=== PATIENT | male | born 1945 | race Caucasian/White ===

== ENCOUNTER → 2024-05-30 08:51 | Outpatient (REF) | payer MEDICARE, OTHER, SELFPAY ==
[2024-05-30 09:47] LABS: % Basophils 1.1 % (0-2); % Eosinophils 1.4 % (0-6); % Immature Granulocytes 0.4 % (0-0.5); % Lymphocytes 21.5 % (20.5-51.1); % Neutrophils 65.6 % (42.2-75.2); Absolute Basophils 0.1 10^3/uL (0-0.2); Absolute Eosinophils 0.1 10^3/uL (0-0.7); Absolute Lymphocytes 1.5 10^3/uL (1.2-3.4); Absolute Monocytes 0.7 10^3/uL (0.1-0.6); Absolute Neutrophils 4.7 10^3/uL (1.4-6.5); Hematocrit 46.6 % (39.0-52.0); Hemoglobin 15.1 g/dL (13.0-18.0); Mean Corp Hgb Conc. 32.4 g/dL (33.0-37.0); Mean Corpuscular Hgb 29.3 pg (27.0-31.0); Mean Corpuscular Volume 90.3 fL (80.0-94.0); Mean Platelet Volume 8.9 fL (7.4-10.4); Nucleated Red Blood Cells % 0 % (-); Platelet Count 225 10^3/uL (130-400); Red Blood Cell Count 5.16 10^6/uL (4.70-6.10); Red Cell Dist. Width 13.9 % (11.5-14.5); White Blood Cell Count 7.1 10^3/uL (4.8-10.8)
[2024-05-30 10:04] LABS: ALT (SGPT) 19 U/L (0-50); AST (SGOT) 31 U/L (17-59); Albumin 4.4 g/dl (3.5-5.0); Alkaline Phosphatase 76 U/L (38-126); Blood Urea Nitrogen 19 mg/dl (9-20); Calcium 9.5 mg/dl (8.4-10.2); Carbon Dioxide 28 mmol/L (22-30); Chloride 106 mmol/L (98-107); Glucose 98 mg/dl (70-99); Potassium 4.3 mmol/L (3.5-5.1); Sodium 140 mmol/L (135-145); Total Bilirubin 1.5 mg/dl (0.2-1.3); Total Protein 6.7 g/dl (6.3-8.2); eGFR > 60.00
== END ==
LOC: HWLAB 08:51
PROVIDERS: ATTENDING PHYSICIAN Psychiatry & Neurology Vascular Neurology; FAMILY PHYSICIAN Family Medicine
DX: G70.00 Myasthenia gravis without (acute) exacerbation (principal); G30.9 Alzheimer's disease, unspecified
CPT/HCPCS: 36415; 80053; 85025

== ENCOUNTER 2024-08-03 20:14 | Emergency (ER) | payer MEDICARE, OTHER, SELFPAY ==
[2024-08-03 20:15] VITALS: BP 138/82
--- NOTE | 2024-08-03 20:52 | ED.GENMED ---
History of Present Illness
General
Chief Complaint: Rectal Bleeding
Source: patient
Exam Limitations: none
Time Seen by Provider: 08/03/24 20:40
History of Present Illness
History of Present Illness:
See MDM
Past History
Past History
ED Past Medical History: HTN and Hypercholesterolemia; Negative Asthma, CAD, Cancer, CHF, COPD, IDDM or NIDDM
ED Past Surgical History: Negative Cardiac
Social History
Tobacco: Non-smoker
Alcohol: Occasional
Drug: None
Personal:
Living: with family
Employment: Retired
Family History
Family History: Other (Noncontributory)
Phy Exam
Physical Exam
Physical Exam:
See MDM
Course
Orders/Labs/Results
Orders:
Orders
08/03/24 20:20
EKG [Electrocardiogram (*1)] Stat
Reason for Study: Other
Other Reason for Exam: bleeding
EKG- Treatment ONCE
08/03/24 21:03
Complete Blood Count/With Diff Urgent
Comprehensive Metabolic Panel Urgent
Abnormal Lab Results
08/03/24
21:03
WBC 12.9 H 10^3/uL
(4.8-10.8)
Abs Immat Gran (auto) 0.1 H 10^3/uL
(0-0.05)
Absolute Neuts (auto) 10.4 H 10^3/uL
(1.4-6.5)
Absolute Monos (auto) 1.0 H 10^3/uL
(0.1-0.6)
Neutrophils % 80.8 H %
(42.2-75.2)
Lymphocytes % 9.1 L %
(20.5-51.1)
BUN 24 H mg/dl
(9-20)
Glucose 150 H mg/dl
(70-99)
Total Bilirubin 1.4 H mg/dl
(0.2-1.3)
08/03/24 21:03
08/03/24 21:03
Vital Signs
Initial and Last Documented VS:
Initial Vital Signs
Temp Pulse Resp BP Pulse Ox
98.2 F 80 16 138/82 94
08/03/24 20:15 08/03/24 20:15 08/03/24 20:15 08/03/24 20:15 08/03/24 20:15
Last Documented Vital Signs
Temp Pulse Resp BP Pulse Ox
98.2 F 80 16 138/82 94
08/03/24 20:15 08/03/24 20:15 08/03/24 20:15 08/03/24 20:15 08/03/24 20:49
MDM/Problems Addressed
Differential Diagnosis Includes:
HPI and MDM Narrative:
79-year-old male presenting with episode of rectal bleeding. Patient recently told his that he has been constipated for 10 days. They sought help and started on MiraLAX. Patient has been having bowel movements ever since. She was concerned
because his brief had bright red blood in it after his bowel movement. Patient denies abdominal pain. She is concerned it could be related to his history of diverticulosis. He is not on blood thinners
On exam, he is well-appearing nontoxic. Is a soft and nontender abdomen. Rectal exam was performed showing evidence of a recently bleeding external hemorrhoid. There is no thrombosis noted. Rectal exam was performed showing brown stool that was
guaiac negative
Physical exam
General: Well appearing and non-toxic
HEENT: protecting airway
Neck: appears supple
CV: No evidence of cyanosis
Resp: No accessory muscle use
Abd: Non-distended. Soft and nontender
Rectal: External hemorrhoid noted with recent bleeding. No thrombosis. Stool is brown and guaiac not
Extremities: No deformities
Neuro: alert
Psych: Normal affect
Skin: Intact
Problems Addressed including Acute and Chronic Conditions affecting care:
1. External hemorrhoid
Acuity: acute
Prognosis: stable
Details: Appears to be the source of his bleeding. Stool is brown and guaiac negative. Will obtain basic blood work but otherwise discussed stool softeners and steroidal rectal cream
Updates
Hemoglobin stable. Patient and feel comfortable going home
Differential Diagnosis (but not limited to): Diverticulosis, external hemorrhoid, internal hemorrhoid
Testing considered: CT abdomen/pelvis but he has a nontender abdominal exam
Drug therapy (if applicable): OTC meds, please see d/c instruction regarding Rx drugs
Amount and/or Complexity of Data Reviewed
Clinical info obtained from: Patient
External data reviewed: N/A
Labs I independently reviewed (but not limited to): Hemoglobin
Radiology: N/A
Pulse Ox: not hypoxic
EKG independently reviewed: N/A
Health Teacher: N/A
Critical Care: N/A
Risk of Complication:
Social Determinants of health: Good social support
Discussed with other providers: N/A
Escalation of Care includes Admit/Obs: After being observed in the Emergency Department, pt stable for discharge.
Occasional wrong word or 'sound a like' substitutions may have occurred due to the inherent limitations of voice recognition software. Read the chart carefully and recognize, using context, where substitutions have occurred.
*Critical Care Note
Total Time (30-74mins, 75-104mins- exclusive of procedures): Not Applicable
ED Attending Note
-
Portions of this chart may have been created with voice recognition software.� Occasional wrong word or��sound alike� substitutions may have occurred due to the inherent limitations of voice recognition software.
Discharge Plan
Departure
Patient Disposition: Home (Routine Discharge)
Date of Disposition: 08/03/24
Time of Disposition: 21:53
Patient with high blood pressure during this ER visit?: No
Discharge Problem:
Bleeding external hemorrhoids
Instructions: Hemorrhoids (DC)
Prescriptions:
New
pramoxine [Proctofoam] 1 % foam
1 applic ND BID Qty: 15 0RF
No Action
bisoprolol-hydrochlorothiazide 1 EACH tablet
1 ea PO DAILY
Depa
1,000 mg PO BID
ascorbic acid (vitamin C) [Vitamin C] 500 MG tablet
1,000 mg PO DAILY
pyridostigmine bromide 60 MG tablet
120 mg PO BID
vitamin E (dl, acetate) 400 UNITS capsule
400 units PO DAILY
glucosamine-chondroitin 1 EACH capsule
1 ea PO BID
mycophenolate mofetil 500 MG tablet
500 mg PO BID
rosuvastatin 10 MG tablet
10 mg PO DAILY
cholecalciferol (vitamin D3) 1,000 UNITS tablet
1,000 units PO DAILY
coenzyme R59-leclonm E [Co Q-10 (with Vit E)] 1 EACH capsule
1 ea PO Q48H
multivitamin with folic acid [Tab-A-Lynsey] 1 TABLET tablet
1 tab PO DAILY
calcium carbonate [Oyster Shell Calcium 500] 500 MG tablet
500 mg PO BID
tamsulosin 0.4 MG capsule
0.8 mg PO DAILY Qty: 60 0RF
enoxaparin 40 MG/0.4 ML syringe
40 mg SQ QPM 11 Days Qty: 11 0RF
Referrals:
Diana Romero MD [Family Provider] -
Activity Restrictions/Additional Instructions:
Please return for any worsening symptoms.
You may return at any time if you have further concerns.
Please follow up with your doctor at the first available appointment, preferably this week.
Part of the problem is likely related to your constipation and straining during defecation. This will make hemorrhoids worse. Please start taking an daily ntti-xgx-ibxyewl stool softener such as Colace this is docusate sodium. In addition, please
increase your water intake. Please take the hemorrhoid cream twice a day until symptoms improve.
Thank you for choosing [facility].
Interventions
Interventions:
*Risk Screen - Suicide Last Done: 08/03/24 20:15
*General Assessment Last Done: 08/03/24 20:49
*Neglect/Abuse Screening Last Done: 08/03/24 20:15
ED- Fall Risk Assessment Last Done: 08/03/24 20:49
*ED COVID-19 Vaccine History Last Done: 08/03/24 20:49
JM-Dnycfs-Gkvsiefgus Assessment Last Done: 08/03/24 20:49
ED- Cardiac Assessment Last Done: 08/03/24 20:49
ED- Pulmonary Assessment Last Done: 08/03/24 20:49
Discharge Date and Time
Print Language: SWISS
--- NOTE | 2024-08-03 20:54 | EDRN ---
noticed blood in brief. Per Dr Stewart pt has an external hemorrhoid that was bleeding. No blood in stool per DR Stewart.
[2024-08-03 21:11] LABS: % Basophils 0.6 % (0-2); % Eosinophils 1.1 % (0-6); % Immature Granulocytes 0.4 % (0-0.5); % Lymphocytes 9.1 % (20.5-51.1); % Neutrophils 80.8 % (42.2-75.2); Absolute Basophils 0.1 10^3/uL (0-0.2); Absolute Eosinophils 0.1 10^3/uL (0-0.7); Absolute Immature Granulocytes 0.1 10^3/uL (0-0.05); Absolute Lymphocytes 1.2 10^3/uL (1.2-3.4); Absolute Neutrophils 10.4 10^3/uL (1.4-6.5); Hematocrit 42.4 % (39.0-52.0); Hemoglobin 14.2 g/dL (13.0-18.0); Mean Corp Hgb Conc. 33.5 g/dL (33.0-37.0); Mean Corpuscular Hgb 29.6 pg (27.0-31.0); Mean Corpuscular Volume 88.5 fL (80.0-94.0); Nucleated Red Blood Cells % 0 % (-); Platelet Count 212 10^3/uL (130-400); Red Blood Cell Count 4.79 10^6/uL (4.70-6.10); Red Cell Dist. Width 13.4 % (11.5-14.5); White Blood Cell Count 12.9 10^3/uL (4.8-10.8)
[2024-08-03 21:25] LABS: ALT (SGPT) 28 U/L (0-50); AST (SGOT) 34 U/L (17-59); Albumin 3.8 g/dl (3.5-5.0); Alkaline Phosphatase 109 U/L (38-126); Blood Urea Nitrogen 24 mg/dl (9-20); Calcium 8.9 mg/dl (8.4-10.2); Carbon Dioxide 27 mmol/L (22-30); Chloride 104 mmol/L (98-107); Glucose 150 mg/dl (70-99); Potassium 3.5 mmol/L (3.5-5.1); Sodium 140 mmol/L (135-145); Total Bilirubin 1.4 mg/dl (0.2-1.3); Total Protein 6.4 g/dl (6.3-8.2); eGFR > 60.00
[2024-08-03 22:20] VITALS: BP 105/58
== END 2024-08-03 22:20 | disposition home or self-care (01) ==
LOC: EMR 20:14
PROVIDERS: EMERGENCY PHYSICIAN Student in an Organized Health Care Education/Training Program; FAMILY PHYSICIAN Family Medicine
DX: K64.4 Residual hemorrhoidal skin tags (principal); I10 Essential (primary) hypertension; E78.00 Pure hypercholesterolemia, unspecified
CPT/HCPCS: 99284; 80053; 85025; 93005

== ENCOUNTER → 2024-10-20 12:40 | Outpatient (REF) | payer MEDICARE, OTHER, SELFPAY ==
[2024-10-20 16:43] LABS: % Basophils 0.2 % (0-2); % Eosinophils 0.2 % (0-6); % Immature Granulocytes 0.9 % (0-0.5); % Lymphocytes 9.4 % (20.5-51.1); % Monocytes 8.7 % (1.7-9.3); % Neutrophils 80.6 % (42.2-75.2); Absolute Immature Granulocytes 0.1 10^3/uL (0-0.05); Absolute Lymphocytes 1.2 10^3/uL (1.2-3.4); Absolute Monocytes 1.1 10^3/uL (0.1-0.6); Absolute Neutrophils 9.9 10^3/uL (1.4-6.5); Mean Corpuscular Hgb 28.7 pg (27.0-31.0); Mean Corpuscular Volume 89.6 fL (80.0-94.0); Nucleated Red Blood Cells % 0 % (-); Platelet Count 325 10^3/uL (130-400); Red Blood Cell Count 5.58 10^6/uL (4.70-6.10); Red Cell Dist. Width 13.7 % (11.5-14.5); White Blood Cell Count 12.2 10^3/uL (4.8-10.8)
[2024-10-20 17:01] LABS: ALT (SGPT) 19 U/L (0-50); AST (SGOT) 33 U/L (17-59); Albumin 4.3 g/dl (3.5-5.0); Alkaline Phosphatase 98 U/L (38-126); Blood Urea Nitrogen 25 mg/dl (9-20); Calcium 9.7 mg/dl (8.4-10.2); Carbon Dioxide 29 mmol/L (22-30); Chloride 106 mmol/L (98-107); Glucose 116 mg/dl (70-99); Potassium 3.5 mmol/L (3.5-5.1); Sodium 139 mmol/L (135-145); Total Bilirubin 0.9 mg/dl (0.2-1.3); Total Protein 7.1 g/dl (6.3-8.2); eGFR > 60.00
[2024-10-20 17:02] LABS: Amylase 82 U/L (30-110); Lipase 379 U/L (23-300)
[2024-10-20 17:30] LABS: TSH 2.72 uIU/ml (0.47-4.68)
== END ==
LOC: CLAB 12:40
PROVIDERS: ATTENDING PHYSICIAN Family Medicine
DX: R63.4 Abnormal weight loss (principal); R63.0 Anorexia; R53.83 Other fatigue; I10 Essential (primary) hypertension; Z79.899 Other long term (current) drug therapy
CPT/HCPCS: 36415; 80053; 82150; 83690; 84443; 85025